=== PATIENT | male | born 1985 | race Caucasian/White ===

== ENCOUNTER 2016-03-16 11:29 | Observation (INO) | payer BC ==
[~2016-03-16] VITALS: Ht 188 cm; Wt 150.9 kg
[2016-03-16 12:46] LABS: HEMATOCRIT 46.6 % (38.0-50.0); MCH 29.7 PG (29.0-34.0); MCHC 34.5 G/DL (30.0-36.0); MCV 85.8 FL (86-99); PLATELET COUNT 187 K/uL (156-360); RBC DIS.WIDTH-CV 13.4 % (11.8-14.6); RBC DIS.WIDTH-SD 41.5 % (39-53); RED BLOOD COUNT 5.43 M/uL (4.00-5.50); WHITE BLOOD COUNT 6.9 K/uL (4.1-10.2)
[2016-03-16 12:53] LABS: CHLORIDE 105 mEq/L (99-109); POTASSIUM 3.7 mEq/L (3.7-5.4); SODIUM 140 mEq/L (136-147)
[2016-03-16 12:54] LABS: GLUCOSE 128 mg/dL (70-99)
[2016-03-16 12:56] LABS: ANION GAP 15 MEQ/L (2-14)
[2016-03-16 12:58] LABS: GFR ESTIMATE (CALCULATED) > 59 mL/min/; SERUM ETHYL ALCOHOL 129 mg/dL
[2016-03-16 12:59] LABS: UREA NITROGEN (BUN) 10 mg/dL (9-23)
[2016-03-16 13:01] LABS: D-DIMER ELISA 0.22 mg/L FEU (< 0.57)
[2016-03-16 13:03] LABS: TROP-I INTERPRETATION NEGATIVE; TROPONIN-I < 0.01 ng/mL (0.0-0.30)
[2016-03-16] MEDS ORDERED: AFRIN,GENASAL D15 ML BOTH NARES (14:05)
[2016-03-16] MEDS ORDERED: PRILOSEC20 MG PO (14:05)
[2016-03-16 15:44] VITALS: BP 183/97
[2016-03-16 20:06] VITALS: BP 140/80
[2016-03-16 21:31] LABS: TROP-I INTERPRETATION NEGATIVE; TROPONIN-I < 0.01 ng/mL (0.0-0.30)
[2016-03-17 00:15] VITALS: BP 174/98
[2016-03-17 05:01] VITALS: BP 182/110
[2016-03-17 07:10] VITALS: BP 180/115
[2016-03-17 11:13] VITALS: BP 171/100
[2016-03-17] MEDS ORDERED: HYDROXYZINE PAM25 MG PO (13:13)
[2016-03-17 13:18] VITALS: BP 164/90
[2016-03-17] MEDS ORDERED: LISINOPRIL5 MG PO (13:25)
[2016-03-17 14:28] LABS: Estimated Average Glucose 111 mg/dL (70-123); HEMOGLOBIN A1c (GLYCOHEMOGLOB) 5.5 % HGB (Below 5.7)
== END 2016-03-17 15:43 | disposition home or self-care (01) ==
LOC: EME 11:29 → EDOF 14:30 → 5WEST 14:30
PROVIDERS: Internal Medicine; Nurse Practitioner Family; Physician Assistant
DX: R55 Syncope and collapse (principal); I10 Essential (primary) hypertension; F41.9 Anxiety disorder, unspecified; R19.7 Diarrhea, unspecified; R07.9 Chest pain, unspecified; F17.200 Nicotine dependence, unspecified, uncomplicated; F10.20 Alcohol dependence, uncomplicated; Z88.0 Allergy status to penicillin
CPT/HCPCS: 70450; 71020; 80048; 83036; 84484; 85027; 85379; 87493; 87506; 93005; 93306; 93880; 94640; 95819; 99202; 99281; 99285; G0378; G0480; J0360; J1650; J1885; J2405; J7030; Q0177; S0028